=== PATIENT | female | born 1945 | race Caucasian/White ===

== ENCOUNTER 2021-05-09 14:06 | Outpatient (CLI) | payer MEDICARE, BC | END 2021-05-09 14:07 | disposition home or self-care (01) | LOC: CSHMAMMO 14:06 | PROVIDERS: ATTEND Internal Medicine | DX: Z12.31 Encounter for screening mammogram for malignant neoplasm of breast (principal); Z13.820 Encounter for screening for osteoporosis; M85.852 Other specified disorders of bone density and structure, left thigh; M85.851 Other specified disorders of bone density and structure, right thigh | CPT/HCPCS: 77063; 77067; 77080 ==

== ENCOUNTER 2021-10-16 12:59 | Outpatient (CLI) | payer MEDICARE, BC | END 2021-10-16 13:00 | disposition home or self-care (01) | LOC: CSHCT 12:59 | PROVIDERS: ATTEND Internal Medicine | DX: R04.2 Hemoptysis (principal); J44.9 Chronic obstructive pulmonary disease, unspecified; R94.2 Abnormal results of pulmonary function studies | CPT/HCPCS: 71250 ==

== ENCOUNTER 2022-08-06 15:41 | Outpatient (CLI) | payer MEDICARE, BC | END 2022-08-06 15:42 | disposition home or self-care (01) | LOC: CSHRAD 15:41 | PROVIDERS: ATTEND Internal Medicine | DX: M54.14 Radiculopathy, thoracic region (principal); M47.816 Spondylosis without myelopathy or radiculopathy, lumbar region; M41.86 Other forms of scoliosis, lumbar region | CPT/HCPCS: 72070; 72100 ==